=== PATIENT | female | born 1935 | race Caucasian/White ===

== ENCOUNTER 2017-09-29 16:08 | Observation (INO) ==
--- NOTE | 2017-09-29 16:38 | ED ---
HPI General Chief complaint: Dizziness Stated complaint: Dizzy Spell Time Seen by Provider: 09/29/17 16:22 Source: patient and family Mode of arrival: ambulatory Limitations: no limitations History of Present Illness HPI narrative: Patient is an 82-year-old female with history of hypertension, presents to the emergency room with her daughters for evaluation of possible electrolyte abnormalities. Family reports that they are here visiting from [place], reports that since this morning, patient has not been acting like her normal self. Reports that she has been making grunting sounds, reports that she is "acting out of sorts." Reports that the last time this happened, she was admitted to the hospital 4 days in the ICU for treatment of hyponatremia as well as hypokalemia. Patient reports that she was fluid restricted to 1500 mL' s of water per day as patient was hyponatremic last time because of increased water intake. Patient did admit to me that she has been drinking a lot of water lately as it has been hot outside. Patient reports that she felt dizzy yesterday while she was at the [facility] for a concert - she is not dizzy right now. She denies any chest pain or shortness of breath, denies any fever or chills. Patient is alert and oriented 3 with no current complaints. Related Data Home Medications Medication Instructions Recorded Confirmed aspirin 81 mg PO DAILY 09/29/17 09/29/17 clonazepam [Klonopin] mg PO BID PRN 09/29/17 lisinopril 5 mg PO DAILY 09/29/17 09/29/17 metoprolol tartrate 25 mg PO DAILY 09/29/17 09/29/17 Allergies Allergy/AdvReac Type Severity Reaction Status Date / Time carisoprodol [From Soma] Allergy Severe Hallucinati Verified 09/29/17 16:40 ons influenza virus vaccine ts Allergy Intermediate Hypertensio Verified 09/29/17 16 :40 [id number] (36 mos,up) n [From Fluarix] Review of Systems ROS: all other systems reviewed are negative [facility] Medical History Medical History Bladder cancer (Acute) COPD (chronic obstructive pulmonary disease) (Acute) Hypertension (Acute) Tachycardia (Acute) Surgical History Surgical History Hx of appendectomy (Acute) Hx of cholecystectomy (Acute) Hx of tonsillectomy (Acute) Social History Social History Substance History: No History of Abuse Smoking Status: Former smoker How Often Do You Have a Drink Containing Alcohol: Never Recent Travel in [facility] within the Last 8 Weeks: No Recent Out of Country Travel within the Last 8 Weeks: No Exam Narrative Exam Narrative: GENERAL: NAD SKIN: Focused skin assessment warm/dry. HEAD: Atraumatic. Normocephalic. EYES: Pupils equal and round. No scleral icterus. No injection or drainage. ENT: No nasal bleeding or discharge. Mucous membranes pink and moist. NECK: Trachea midline. No JVD. CARDIOVASCULAR: Regular rate and rhythm. No murmur appreciated. RESPIRATORY: No accessory muscle use. Clear to auscultation. Breath sounds equal bilaterally. GASTROINTESTINAL: Abdomen soft, non-tender, nondistended. Hepatic and splenic margins not palpable. MUSCULOSKELETAL: No obvious deformities. No clubbing. No cyanosis. No edema. NEUROLOGICAL: Awake and alert. No obvious cranial nerve deficits. Motor grossly within normal limits. Normal speech. CN 2-12 grossly intact with no neurological deficits PSYCHIATRIC: Appropriate mood and affect; insight and judgment normal. Course Initial Documented Vital Signs Temperature 98.3 F 09/29/17 16:10 Pulse Rate 80 09/29/17 16:10 Respiratory Rate 20 09/29/17 16:10 Blood Pressure 182/84 H 09/29/17 16:10 Pulse Oximetry 95 09/29/17 16:10 Last Documented Vital Signs Temperature 98.3 F 09/29/17 16:10 Pulse Rate 80 09/29/17 17:46 Respiratory Rate 18 09/29/17 17:45 Blood Pressure 174/82 H 09/29/17 17:45 Pulse Oximetry 95 09/29/17 17:45 Medical Decision Making MDM Narrative Medical decision making narrative: During the course of the patients emergency department visit, the patients history, examination, and differential diagnosis were reviewed with the patient. The patient was placed on a gis consultant with oximetry and frequent blood pressure monitoring. The patient had an IV access obtained and blood work sent for analysis. The patients laboratory studies were reviewed and remarkable for a sodium of 132 , potassium 3.5, BUN 19, creatinine 1.10 UA with no signs of infection. EKG does show normal sinus rhythm but she does have diffuse ST segment depressions as well as T-wave inversions concerning for ischemia. I did add cardiac enzymes to her lab work. There is no previous EKGs to compare, patient will require admission to the hospital for cardiac observation. Patient will be given an aspirin 1st set of ce was neg - case reviewed with Dr. Keane who accepts pt to service Differential Diagnosis Differential Diagnosis: Hyponatremia, hypokalemia, electrolyte abnormality, arrhythmia, UTI Medical Records Medical records reviewed: Yes I reviewed the patient's medical records. Lab Data Result diagrams: 09/29/17 16:50 09/29/17 16:50 Lab Results 09/29/17 09/29/17 09/29/17 Range/Units 16:50 16:50 16:50 CBC w Diff Auto diff final WBC 8.2 (4.0-11.0) th/mm3 RBC 4.33 (4.00-5.30) mil/mm3 Hgb 13.2 (11.6-15.3) gm/dL Hct 38.6 (35.0-46.0) % MCV 89.3 (80.0-100.0) fL MCH 30.6 (27.0-34.0) pg MCHC 34.3 (32.0-36.0) % RDW 12.2 (11.6-17.2) % Plt Count 246 (150-450) th/mm3 MPV 7.3 (7.0-11.0) fL Neut % (Auto) 72.8 H (16.0-70.0) % Lymph % (Auto) 16.1 (9.0-44.0) % Rains % (Auto) 7.7 (0.0-8.0) % Eos % (Auto) 2.9 (0.0-4.0) % Baso % (Auto) 0.5 (0.0-2.0) % Neut # (Auto) 6.1 (1.8-7.7) th/mm3 Lymph # (Auto) 1.3 (1.0-4.8) th/mm3 Rains # (Auto) 0.6 (0.0-0.9) th/mm3 Eos # (Auto) 0.2 (0.0-0.4) th/mm3 Baso # (Auto) 0.0 (0.0-0.2) th/mm3 WBC Differential . Differential Comment . PT (9.8-11.6) sec INR Ratio APTT (24.3-30.1) sec Sodium 132 L (136-145) meq/L Potassium 3.5 (3.5-5.1) meq/L Chloride 99 (98-107) meq/L Carbon Dioxide 24.5 (21.0-32.0) meq/L Anion Gap 9 (5-15) meq/L BUN 19 H (7-18) mg/dL Creatinine 1.10 H (0.50-1.00) mg/dL Estimated GFR 48 L (>89) mL/min Random Glucose 113 H (74-106) mg/dL Calcium 10.0 (8.5-10.1) mg/dL Total Creatine Kinase (26-192) U/L Troponin I (0.02-0.05) ng/mL Ur Collection Type Clean catch Urine Color Yellow (Yellw/Straw) Urine Clarity Clear (Clear) Urine pH 5.5 (5.0-8.5) Ur Specific [place] Less/equal 1.005 (1.002-1.035) Urine Protein Negative (Neg-Trace) mg/dL Urine Glucose (UA) Negative (Negative) mg/dL Urine Ketones Negative (Negative) mg/dL Urine Occult Blood Negative (Negative) Urine Nitrate Negative (Negative) Urine Bilirubin Negative (Negative) Urine Urobilinogen 0.2 (Less than 2) mg/dL Ur Leukocyte Esterase Negative (Negative) Urine WBC 0-5 (0-5) /hpf Ur Squamous Epith Cells 0-5 (0-5) /hpf Micro UA Comment Culture not ind Urine Culture Comments Culture not ind 09/29/17 09/29/17 09/29/17 Range/Units 16:50 16:50 16:50 CBC w Diff WBC (4.0-11.0) th/mm3 RBC (4.00-5.30) mil/mm3 Hgb (11.6-15.3) gm/dL Hct (35.0-46.0) % MCV (80.0-100.0) fL MCH (27.0-34.0) pg MCHC (32.0-36.0) % RDW (11.6-17.2) % Plt Count (150-450) th/mm3 MPV (7.0-11.0) fL Neut % (Auto) (16.0-70.0) % Lymph % (Auto) (9.0-44.0) % Rains % (Auto) (0.0-8.0) % Eos % (Auto) (0.0-4.0) % Baso % (Auto) (0.0-2.0) % Neut # (Auto) (1.8-7.7) th/mm3 Lymph # (Auto) (1.0-4.8) th/mm3 Rains # (Auto) (0.0-0.9) th/mm3 Eos # (Auto) (0.0-0.4) th/mm3 Baso # (Auto) (0.0-0.2) th/mm3 WBC Differential Differential Comment PT 10.6 (9.8-11.6) sec INR 1.0 Ratio APTT 24.6 (24.3-30.1) sec Sodium (136-145) meq/L Potassium (3.5-5.1) meq/L Chloride (98-107) meq/L Carbon Dioxide (21.0-32.0) meq/L Anion Gap (5-15) meq/L BUN (7-18) mg/dL Creatinine (0.50-1.00) mg/dL Estimated GFR (>89) mL/min Random Glucose (74-106) mg/dL Calcium (8.5-10.1) mg/dL Total Creatine Kinase 194 H (26-192) U/L Troponin I Less than 0.02 L (0.02-0.05) ng/mL Ur Collection Type Urine Color (Yellw/Straw) Urine Clarity (Clear) Urine pH (5.0-8.5) Ur Specific [place] (1.002-1.035) Urine Protein (Neg-Trace) mg/dL Urine Glucose (UA) (Negative) mg/dL Urine Ketones (Negative) mg/dL Urine Occult Blood (Negative) Urine Nitrate (Negative) Urine Bilirubin (Negative) Urine Urobilinogen (Less than 2) mg/dL Ur Leukocyte Esterase (Negative) Urine WBC (0-5) /hpf Ur Squamous Epith Cells (0-5) /hpf Micro UA Comment Urine Culture Comments ECG Data EKG Prior to Arrival: No Attestation: I personally reviewed and interpreted this ECG as follows: Prior ECG tracings: not available for review Interpretation: EKG at 1714: NSR at 65bpm, diffuse st seg depression with T wave inversions - there are no previous ekgs to compare Discharge Plan Discharge Disposition Patient Disposition: 30 Still Patient Physicians Team ED Provider: Jocelyn Cardenas Primary Care Provider: UNKNOWN, Rxs /Orders / Referrals /Forms Prescriptions: No Action clonazepam [Klonopin] 0.5 mg Tablet PO BID PRN (Reason: Anxiety) RF: 0 aspirin 81 mg Tablet,Chewable 81 mg PO DAILY RF: 0 lisinopril 5 mg Tablet 5 mg PO DAILY RF: 0 metoprolol tartrate 25 mg Tablet 25 mg PO DAILY RF: 0 Status ED Status: With Doctor
[2017-09-29] MEDS ORDERED: Sod Chloride 0.9% Inj 1,000 ML IV.SIG ONE (16:48)
[2017-09-29 17:00] LABS: Baso % (Auto) 0.5 % (0.0-2.0); Bilirubin,Urine Negative (Negative); Clarity,Urine Clear (Clear); Color,Urine Yellow (Yellw/Straw); Eos # (Auto) 0.2 th/mm3 (0.0-0.4); Eos % (Auto) 2.9 % (0.0-4.0); Glucose,Urine (UA) Negative (Negative); Hematocrit 38.6 % (35.0-46.0); Hemoglobin 13.2 gm/dL (11.6-15.3); Leukocyte Esterase,Urine Negative (Negative); Lymph # (Auto) 1.3 th/mm3 (1.0-4.8); Lymph % (Auto) 16.1 % (9.0-44.0); Mean Corpuscular HGB Conc 34.3 % (32.0-36.0); Mean Corpuscular Hemoglobin 30.6 pg (27.0-34.0); Mean Corpuscular Volume 89.3 fL (80.0-100.0); Mean Platelet Volume 7.3 fL (7.0-11.0); Mono # (Auto) 0.6 th/mm3 (0.0-0.9); Mono % (Auto) 7.7 % (0.0-8.0); Neut # (Auto) 6.1 th/mm3 (1.8-7.7); Neut % (Auto) 72.8 % (16.0-70.0); Nitrite,Urine Negative (Negative); PH,Urine 5.5 (5.0-8.5); Platelet Count 246 th/mm3 (150-450); Red Blood Count 4.33 mil/mm3 (4.00-5.30); Red Cell Distribution Width 12.2 % (11.6-17.2); Specific Gravity,Urine Less/Equal 1.005 (1.002-1.035); Urobilinogen,Urine 0.2 mg/dL (Less than 2); White Blood Count 8.2 th/mm3 (4.0-11.0)
[2017-09-29 17:09] LABS: Potassium 3.5 meq/L (3.5-5.1)
[2017-09-29 17:12] LABS: Carbon Dioxide 24.5 meq/L (21.0-32.0)
[2017-09-29 17:14] LABS: WBC,Urine 0-5 /hpf (0-5)
[2017-09-29 17:15] LABS: Squamous Epithelial Cell,Urine 0-5 /hpf (0-5)
[2017-09-29] MEDS ORDERED: Aspirin 325 MG Tablet PO ONE (17:29)
[2017-09-29 17:31] LABS: Activated Partial Thrombo Time 24.6 sec (24.3-30.1); Prothrombin Time 10.6 sec (9.8-11.6)
[2017-09-29] MEDS ORDERED: Temazepam 15 MG Capsule PO PRN (17:50)
[2017-09-29] MEDS ORDERED: Bisacodyl 10 MG Supp RECTAL PRN (17:50)
[2017-09-29 18:01] LABS: CKMB Percent 0.8 % (0.0-4.0); Creatine Kinase MB 1.6 ng/mL (0.5-3.6)
--- NOTE | 2017-09-29 18:25 | CT ---
EXAM DATE: 09/29/2017 6:19 PM EDT AGE/SEX: 82 years / Female INDICATIONS: Dizziness 2 days CLINICAL DATA: This is the patient's initial encounter. Patient reports that signs and symptoms have been present for 2 days and indicates a pain score of 0/10. MEDICAL/SURGICAL HISTORY: Carcinoma, bladder. Chronic obstructive pulmonary disease. Hypertension . Tachycardia Appendectomy. Cholecystectomy. Tonsillectomy. RADIATION DOSE: 50.43 CTDI (mGy) COMPARISON: No prior exams available for comparison. TECHNIQUE: CT of the head without contrast. Using automated exposure control and adjustment of the mA and/or kV according to patient size, radiation dose was kept as low as reasonably achievable to ob tain optimal diagnostic quality images. DICOM format image data is available electronically for revi ew and comparison. FINDINGS: Cerebrum: The ventricles are normal for age. No evidence of midline shift, mass lesion, hemorrhage or acute infarction. No extraaxial fluid collections are seen. Posterior Fossa: The cerebellum and brainstem are intact. The 4th ventricle is midline. The cerebe llopontine angle is unremarkable. Extracranial: The visualized portion of the orbits is intact. Skull: The calvaria is intact. No evidence of skull fracture. CONCLUSION: No acute intracranial abnormality. . Electronically signed by: Al Hall MD 09/29/2017 6:24 PM EDT
[2017-09-29 22:07] VITALS: RESP 20
[2017-09-29 22:33] LABS: Creatine Kinase 180 U/L (26-192)
[2017-09-29] MEDS: clonazePAM 0.5 MG Tablet PO SCH (22:44)
[2017-09-29 22:45] LABS: Creatine Kinase MB 2.1 ng/mL (0.5-3.6)
[2017-09-29 23:28] LABS: Creatine Kinase 174 U/L (26-192)
[2017-09-30 07:56] LABS: Baso % (Auto) 0.6 % (0.0-2.0); Eos # (Auto) 0.3 th/mm3 (0.0-0.4); Eos % (Auto) 5.2 % (0.0-4.0); Hematocrit 36.8 % (35.0-46.0); Hemoglobin 12.9 gm/dL (11.6-15.3); Lymph # (Auto) 0.7 th/mm3 (1.0-4.8); Lymph % (Auto) 13.1 % (9.0-44.0); Mean Corpuscular HGB Conc 35.1 % (32.0-36.0); Mean Corpuscular Volume 88.2 fL (80.0-100.0); Mean Platelet Volume 8.4 fL (7.0-11.0); Mono # (Auto) 0.5 th/mm3 (0.0-0.9); Mono % (Auto) 10.2 % (0.0-8.0); Neut # (Auto) 3.8 th/mm3 (1.8-7.7); Neut % (Auto) 70.9 % (16.0-70.0); Platelet Count 214 th/mm3 (150-450); Red Blood Count 4.17 mil/mm3 (4.00-5.30); Red Cell Distribution Width 12.7 % (11.6-17.2); White Blood Count 5.3 th/mm3 (4.0-11.0)
[2017-09-30 08:03] LABS: Potassium 3.6 meq/L (3.5-5.1)
[2017-09-30 08:07] LABS: Calcium 9.6 mg/dL (8.5-10.1)
[2017-09-30 08:08] LABS: Carbon Dioxide 24.5 meq/L (21.0-32.0)
[2017-09-30] MEDS: clonazePAM 0.5 MG Tablet PO SCH (08:19)
--- NOTE | 2017-09-30 08:31 | ECG ---
Date Performed: 09/29/2017 Time Performed: 17:14:47 PTAGE: 82 years EKG: ATRIAL FIBRILLATION VOLTAGE CRITERIA FOR LVH ST DEVIATION AND MODERATE T-WAVE ABNORMALITY, CONSIDER ANTERIOR ISCHEMIA ABNORMAL ECG NO PREVIOUS TRACING DOCTOR: Arnel Kimble Interpretating Date/Time 09/30/2017 08:27:39
[2017-09-30] MEDS ORDERED: Metoprolol Tartrate 25 MG Tablet PO SCH (09:00)
[2017-09-30] MEDS ORDERED: Lisinopril 5 MG Tablet PO SCH (09:00)
--- NOTE | 2017-09-30 09:57 | P.HP ---
History of Present Illness Primary Care Physician: UNKNOWN Chief Complaint: Just not feeling well History of Present Illness: 82-year-old female with known history of hypertension, electrolyte abnormalities , history of tobacco use, history of bladder cancer, history of SVTs who presented to the hospital because she was not feeling well. Patient usually resides in [facility] and she came down to visit with her family. She states that she was having some shortness of breath and difficulty breathing when she was traveling in the airports because of long distances that she had to walk. However she is doing well when she got here to [place]. She went out dancing Sunday night and was doing well in the next day she just did not feel right. She cannot explain it exactly but she had some fatigue, weakness. She was hospitalized up in [facility] in the fall due to electrolyte abnormalities. And she thought it felt similar to then. Her family brought her to the hospital to evaluate for her electrolyte abnormalities (mainly hyponatremia, hypokalemia). Patient had workup done emergency department found to have some mild hyponatremia, potassium was normal. ER physician noted abnormal EKG with T -wave abnormalities, ST depressions. ER physician does not know if this is chronic or acute. Because of the abnormal EKG the ER physician recommended observation the hospital for further evaluation. Patient denies any chest pain , shortness of breath, dyspnea, nausea, vomiting, lightheadedness, dizziness. Patient indicates that she underwent cardiac catheterization approximately 2 years ago. She is told that time that she had a clean arteries. - Diagnosis (1) Abnormal EKG Review of Systems All other systems reviewed negative except as stated in HPI Constitutional: Reports fatigue, Reports weakness PMFSH - History History Provided By: Patient - Medical History Medical History: Medical History (Last Reviewed 09/30/17 @ 09:49 by MARIANNE Miller) Bladder cancer COPD (chronic obstructive pulmonary disease) Hypertension Tachycardia - Surgical History Surgical History: Surgical History (Last Updated 09/30/17 @ 09:50 by MARIANNE Miller) History of cardiac catheterization Hx of appendectomy Hx of cholecystectomy Hx of tonsillectomy - Family History Family History: Family History (Last Updated 09/30/17 @ 09:50 by MARIANNE Miller) Father No pertinent family history Mother History of heart disease - Tobacco History Second Hand Smoke Exposure: No Tobacco Use In Past 30 Days: No Smoking Status: Former smoker Tobacco Type: Cigarettes Number of Pack Years (if former smoker): 60 - Alcohol History How Often Do You Have a Drink Containing Alcohol: Never - Substance Use History Substance History: No History of Abuse - Travel History Recent Travel in the [place] Within the Last 8 Weeks: No Recent Travel Out of the Country Within the Last 8 Weeks: No - Immunization History Tetanus Immunization: Unsure Hx Influenza Vaccine This Season: No Medications and Allergies Active Medications: Active Medications Aspirin (Aspirin Chew) 81 mg PO DAILY [facility] Last Admin: 09/30/17 08:19 Dose: 81 mg Bisacodyl (Dulcolax Supp) 10 mg RECTAL DAILY PRN PRN Reason: SEVERE CONSITIPATION Clonazepam (Klonopin) 0.25 mg PO TID [facility] Last Admin: 09/30/17 08:19 Dose: 0.25 mg Lactated Ringer's (Lr 1000 Ml Inj) 1,000 mls @ 100 mls/hr IV.CONT .Q10H [facility] Last Admin: 09/30/17 06:43 Dose: 100 mls/hr Lactulose (Lactulose Liq) 30 ml PO DAILY PRN PRN Reason: SEVERE CONSITIPATION Lisinopril (Prinivil) 5 mg PO DAILY [facility] Last Admin: 09/30/17 08:20 Dose: 5 mg Metoprolol Tartrate (Lopressor) 25 mg PO DAILY [facility] Last Admin: 09/30/17 08:19 Dose: 25 mg Sodium Chloride (Ns Flush) 2 ml IV.FLUSH PRN PRN PRN Reason: FLUSH AFTER USING IV ACCESS Sodium Chloride (Ns Flush) 2 ml IV.FLUSH BID [facility] Last Admin: 09/30/17 08:23 Dose: 2 ml Temazepam (Restoril) 15 mg PO HS PRN PRN Reason: INSOMNIA Allergies Allergy/AdvReac Type Severity Reaction Status Date / Time carisoprodol [From Soma] Allergy Severe Hallucinati Verified 09/29/17 16:40 ons influenza virus vaccine ts Allergy Intermediate Hypertensio Verified 09/29/17 16 :40 [id number] (36 mos,up) n [From Fluarix] Home Medications Medication Instructions Recorded Confirmed Type amlodipine 5 mg PO DAILY 09/29/17 09/29/17 History aspirin 81 mg PO DAILY 09/29/17 09/29/17 History clonazepam [Klonopin] 0.25 mg PO TID 09/29/17 09/29/17 History lisinopril 10 mg PO DAILY 09/29/17 09/29/17 History metoprolol tartrate 50 mg PO DAILY 09/29/17 09/29/17 History Exam Vital signs: Vital Signs 09/29/17 16:10 09/29/17 17:45 09/29/17 17:46 Temperature 98.3 F Pulse Rate 80 80 80 Respiratory Rate 20 18 Blood Pressure 182/84 H 174/82 H Pulse Oximetry 95 95 09/29/17 18:43 09/29/17 20:00 09/30/17 00:00 Temperature 97.2 F L 97.6 F Pulse Rate 74 80 74 Respiratory Rate 18 20 20 Blood Pressure 177/84 H 160/72 H Pulse Oximetry 95 93 L 98 09/30/17 04:00 09/30/17 08:00 Temperature 98.7 F 98.5 F Pulse Rate 71 83 Respiratory Rate 20 20 Blood Pressure 156/68 H 140/73 Pulse Oximetry 90 L 94 L Intake & Output 09/29/17 09/30/17 09/30/17 18:59 06:59 18:59 Intake Total 1000 / 1000 480 / 480 Balance 1000 / 1000 480 / 480 Weight 56 kg 55.3 kg Intake: IV 1000 / 1000 NS Inj 1,000 ML @ Wide Open IV. 1000 / 1000 SIG BOLUS ONE Rx#:[id number] Oral 480 / 480 Other: # Voids 2 Weight On Admission 55.4 kg Narrative: GENERAL: Well-developed, well-nourished, in no acute distress. alert and orientated HEENT: Head is normocephalic without any lesions or masses noted. Facial features are symmetric. Eyes: Pupils equal round reactive to light. Extraocular muscles are intact. Conjunctivae were clear. Oropharyngeal: Pharynx without any erythema edema. Tongue is midline without deviation. Buccal mucosa is moist without any masses or lesions NECK: Supple without any masses. Trachea midline no deviation. No JVD, no bruits are appreciated CARDIAC: Regular rhythm, regular rate. S1/S2 are heard. No murmurs gallops or rubs. LUNGS: Clear to auscultation bilaterally. No wheeze, rhonchi or rales. No use of accessory muscles on inspiration or expiration. ABDOMEN: Soft, nontender. Nondistended. Bowel sounds heard in all 4 quadrants. No organomegaly or masses. Negative rebound, negative guarding EXTREMITIES: No edema, pulses are equal bilaterally. No cyanosis or clubbing NEUROLOGY: Mood and affect appear appropriate. Cranial nerves II through XII grossly intact. Muscle strength 5/5 in upper and lower extremities bilaterally. Deep tendon reflexes are 2+ in upper and lower extremities bilaterally. Results - Labs CBC & Chem 7: 09/30/17 06:15 09/30/17 06:15 Labs: Laboratory Results - last 24 hr 09/29/17 09/29/17 09/29/17 16:50 16:50 16:50 CBC w Diff Auto diff final WBC 8.2 RBC 4.33 Hgb 13.2 Hct 38.6 MCV 89.3 MCH 30.6 MCHC 34.3 RDW 12.2 Plt Count 246 MPV 7.3 Neut % (Auto) 72.8 H Lymph % (Auto) 16.1 [place] % (Auto) 7.7 Eos % (Auto) 2.9 Baso % (Auto) 0.5 Neut # (Auto) 6.1 Lymph # (Auto) 1.3 [place] # (Auto) 0.6 Eos # (Auto) 0.2 Baso # (Auto) 0.0 WBC Differential . Differential Comment . PT INR APTT Sodium 132 L Potassium 3.5 Chloride 99 Carbon Dioxide 24.5 Anion Gap 9 BUN 19 H Creatinine 1.10 H Estimated GFR 48 L Random Glucose 113 H Calcium 10.0 Total Creatine Kinase CK-MB (CK-2) CK-MB (CK-2) % Troponin I Ur Collection Type Clean catch Urine Color Yellow Urine Clarity Clear Urine pH 5.5 Ur Specific [place] Less/equal 1.005 Urine Protein Negative Urine Glucose (UA) Negative Urine Ketones Negative Urine Occult Blood Negative Urine Nitrate Negative Urine Bilirubin Negative Urine Urobilinogen 0.2 Ur Leukocyte Esterase Negative Urine WBC 0-5 Ur Squamous Epith Cells 0-5 Micro UA Comment Culture not ind Urine Culture Comments Culture not ind 09/29/17 09/29/17 09/29/17 16:50 16:50 16:50 CBC w Diff WBC RBC Hgb Hct MCV MCH MCHC RDW Plt Count MPV Neut % (Auto) Lymph % (Auto) [place] % (Auto) Eos % (Auto) Baso % (Auto) Neut # (Auto) Lymph # (Auto) [place] # (Auto) Eos # (Auto) Baso # (Auto) WBC Differential Differential Comment PT 10.6 INR 1.0 APTT 24.6 Sodium Potassium Chloride Carbon Dioxide Anion Gap BUN Creatinine Estimated GFR Random Glucose Calcium Total Creatine Kinase 194 H CK-MB (CK-2) 1.6 CK-MB (CK-2) % 0.8 Troponin I Less than 0.02 L Ur Collection Type Urine Color Urine Clarity Urine pH Ur Specific [place] Urine Protein Urine Glucose (UA) Urine Ketones Urine Occult Blood Urine Nitrate Urine Bilirubin Urine Urobilinogen Ur Leukocyte Esterase Urine WBC Ur Squamous Epith Cells Micro UA Comment Urine Culture Comments 09/29/17 09/29/17 09/30/17 21:36 22:48 04:53 CBC w Diff WBC RBC Hgb Hct MCV MCH MCHC RDW Plt Count MPV Neut % (Auto) Lymph % (Auto) [place] % (Auto) Eos % (Auto) Baso % (Auto) Neut # (Auto) Lymph # (Auto) [place] # (Auto) Eos # (Auto) Baso # (Auto) WBC Differential Differential Comment PT INR APTT Sodium Potassium Chloride Carbon Dioxide Anion Gap BUN Creatinine Estimated GFR Random Glucose Calcium Total Creatine Kinase 180 174 CK-MB (CK-2) 2.1 CK-MB (CK-2) % Troponin I Less than 0.02 L Less than 0.02 L Less than 0.02 L Ur Collection Type Urine Color Urine Clarity Urine pH Ur Specific [place] Urine Protein Urine Glucose (UA) Urine Ketones Urine Occult Blood Urine Nitrate Urine Bilirubin Urine Urobilinogen Ur Leukocyte Esterase Urine WBC Ur Squamous Epith Cells Micro UA Comment Urine Culture Comments 09/30/17 09/30/17 06:15 06:15 CBC w Diff Auto diff final WBC 5.3 RBC 4.17 Hgb 12.9 Hct 36.8 MCV 88.2 MCH 31.0 MCHC 35.1 RDW 12.7 Plt Count 214 MPV 8.4 Neut % (Auto) 70.9 H Lymph % (Auto) 13.1 [place] % (Auto) 10.2 H Eos % (Auto) 5.2 H Baso % (Auto) 0.6 Neut # (Auto) 3.8 Lymph # (Auto) 0.7 L [place] # (Auto) 0.5 Eos # (Auto) 0.3 Baso # (Auto) 0.0 WBC Differential . Differential Comment . PT INR APTT Sodium 135 L Potassium 3.6 Chloride 102 Carbon Dioxide 24.5 Anion Gap 9 BUN 17 Creatinine 0.87 Estimated GFR 63 L Random Glucose 91 Calcium 9.6 Total Creatine Kinase CK-MB (CK-2) CK-MB (CK-2) % Troponin I Ur Collection Type Urine Color Urine Clarity Urine pH Ur Specific [place] Urine Protein Urine Glucose (UA) Urine Ketones Urine Occult Blood Urine Nitrate Urine Bilirubin Urine Urobilinogen Ur Leukocyte Esterase Urine WBC Ur Squamous Epith Cells Micro UA Comment Urine Culture Comments - Imaging Impressions Head CT 09/29/17 00:00 CONCLUSION: No acute intracranial abnormality. . Caprini VTE Risk Assessment Caprini VTE Risk Assessment: Moderate/High Risk (score >= 2) Caprini Risk Assessment Model: Point Value = 1 Point Value = 2 Point Value = 3 Point Value = 5 Age 41-60 Minor surgery BMI > 25 kg/m2 Swollen legs Varicose veins or History of unexplained or recurrent spontaneous Oral contraceptives or hormone replacement Sepsis (< 1 month) Serious lung disease, including pneumonia (< 1 month) Abnormal pulmonary function Acute myocardial infarction Congestive heart failure (< 1 month) History of inflammatory bowel disease Medical patient at bed rest Age 61-74 Arthroscopic surgery Major open surgery (> 45 min) Laparoscopic surgery (> 45 min) Malignancy Confined to bed (> 72 hours) Immobilizing plaster cast Central venous access Age >= 75 History of VTE Family history of VTE Factor V Leiden Prothrombin [id number] Lupus anticoagulant Anticardiolipin antibodies Elevated serum homocysteine Heparin-induced thrombocytopenia Other congenital or acquired thrombophilia Stroke (< 1 month) Elective arthroplasty Hip, pelvis, or leg fracture Acute spinal cord injury (< 1 month) Prophylaxis Regimen: Total Risk Factor Score Risk Level Prophylaxis Regimen 0-1 Low Early ambulation 2 Moderate Order ONE of the following: *Sequential Compression Device (SCD) *Heparin 5000 units SQ BID 3-4 Higher Order ONE of the following medications: *Heparin 5000 units SQ TID *Enoxaparin/Lovenox 40 mg SQ daily (WT < 150 kg, CrCl > 30 mL/min) *Enoxaparin/Lovenox 30 mg SQ daily (WT < 150 kg, CrCl > 10-29 mL/min) *Enoxaparin/Lovenox 30 mg SQ BID (WT < 150 kg, CrCl > 30 mL/min) AND/OR *Sequential Compression Device (SCD) 5 or more Highest Order ONE of the following medications: *Heparin 5000 units SQ TID (Preferred with Epidurals) *Enoxaparin/Lovenox 40 mg SQ daily (WT < 150 kg, CrCl > 30 mL/min) *Enoxaparin/Lovenox 30 mg SQ daily (WT < 150 kg, CrCl > 10-29 mL/min) *Enoxaparin/Lovenox 30 mg SQ BID (WT < 150 kg, CrCl > 30 mL/min) AND *Sequential Compression Device (SCD) Assessment and Plan - Assessment (1) Abnormal EKG Code(s): R94.31 - Abnormal electrocardiogram [ECG] [EKG] Status: Acute - Plan Abnormal EKG -EKG shows atrial fibrillation with moderate T-wave abnormality, consider anterior ischemia. -We will need to follow-up with another EKG -I called [facility] in [place], [place]. Requested previous EKG for comparison -Serial cardiac enzymes have remained negative. No signs of any acute coronary event -[facility] was nice enough to provide us with 2 previous EKGs. The EKG that was actually done here at [place] is actually much improved from the previous ones at [facility]. Still showed the same abnormalities with T-wave abnormalities, ST depressions. There was no changes seen from previous EKGs. Hyponatremia, mild: Improved -Continue fluid restriction -Continue monitor sodium level Hypertension -Continue home medications DVT prevention -Subcutaneous heparin Discharge Planning: Discharge home in stable condition Activity: Ad mary. Diet: Healthy heart diet Medication per medication reconciliation Follow-up with primary medical doctor in 1 week
[2017-09-30] MEDS ORDERED: amLODIPine 5 MG Tablet PO SCH (10:00)
[2017-09-30] MEDS ORDERED: Heparin - SQ 10,000 UNITS/ML Vial SQ SCH (10:00)
[2017-09-30 12:28] VITALS: BP 147/69; PULSE 81; TEMP 97.5; O2SAT 92
--- NOTE | 2017-10-01 16:20 | ECG ---
Date Performed: 09/30/2017 Time Performed: 11:17:04 PTAGE: 82 years EKG: Sinus rhythm WITH SHORT FL INTERVAL LEFT VENTRICULAR HYPERTROPHY AND ST-T CHANGE ABNORMAL ECG Since the PREVIOUS TRACING , no significant change noted PREVIOUS TRACIN09/29/2017 17.14 DOCTOR: Dulce Arevalo Interpretating Date/Time 10/01/2017 16:19:07
== END 2017-09-30 13:06 | disposition home or self-care (01) ==
LOC: PHEDA 16:08 → PHED 16:08 → PH3 16:08
PROVIDERS: ADMIT Hospitalist; ATTEND Hospitalist
DX: R94.31 Abnormal electrocardiogram [ECG] [EKG]; J44.9 Chronic obstructive pulmonary disease, unspecified; R42 Dizziness and giddiness; E87.1 Hypo-osmolality and hyponatremia; Z79.899 Other long term (current) drug therapy; R53.83 Other fatigue; R00.0 Tachycardia, unspecified; Z87.891 Personal history of nicotine dependence; I10 Essential (primary) hypertension; Z79.82 Long term (current) use of aspirin; I48.91 Unspecified atrial fibrillation; C67.9 Malignant neoplasm of bladder, unspecified